=== PATIENT | female | born 1990 | race Caucasian/White ===

== ENCOUNTER → 2022-08-15 | Outpatient (CLI) | payer OTHER ==
[~2022-08-15] MED LIST: BIRTH CONTROL1 EAC1 PO; CIPRO250 MG PO
[2022-08-16 13:07] LABS: ANTI-DSDNA ANTIBODIES 1 IU/mL (0-9); ANTI-RNP ANTIBODIES <0.2 AI (0.0-0.9); ANTICHROMATIN ANTIBODIES 0.2 AI (0.0-0.9); ANTISCLERODERMA-70 AB <0.2 AI (0.0-0.9); SJOGREN ANTI-SS-A <0.2 AI (0.0-0.9); SJOREN AB, ANTI-SS-B <0.2 AI (0.0-0.9)
== END | disposition home or self-care (01) ==
LOC: LAB 07:28
PROVIDERS: Student in an Organized Health Care Education/Training Program; ATTEND Family Medicine
DX: R53.83 Other fatigue (principal); D70.9 Neutropenia, unspecified

== ENCOUNTER → 2023-04-10 | Outpatient (CLI) | payer OTHER | END | disposition home or self-care (01) | LOC: US 15:50 | PROVIDERS: ATTEND Family Medicine | DX: N83.291 Other ovarian cyst, right side (principal) ==